=== PATIENT | female | born 1945 | race Caucasian/White ===

== ENCOUNTER 2020-09-18 20:13 | Outpatient (REF) | payer MEDICARE, OTHER, SELFPAY ==
[2020-09-18 13:41] LABS: Abs Immature Grans 0.02 10^3/uL (0.0-0.06); Absolute Basophil Count 0.06 10^3/uL (0.0-0.2); Absolute Eosinophil Count 0.22 10^3/uL (0.0-0.7); Absolute Lymphocyte Count 2.21 10^3/uL (1.2-3.4); Absolute Monocyte Count 0.63 10^3/uL (0.1-0.8); Absolute Neutrophil Count 5.05 10^3/uL (1.2-6.7); Basophils % 0.7; Eosinophils % 2.7; HCT 42.6 % (36.0-46.0); HGB 14.1 g/dL (11.2-15.7); Immature Grans % 0.2; MCH 29.1 pg (27.0-33.0); MCHC 33.1 % (32.0-36.0); MCV 87.8 fL (80-95); MPV 11.9 fL (8.0-11.0); Monocytes % 7.7; Neutrophils % 61.7; Nucleated RBC 0 %; Platelet Count 175 10^3/uL (130-400); RBC 4.85 10^6/uL (3.93-5.22); RDW 13.1 % (11.7-14.6); RDW-SD 42.1 fL; WBC 8.19 10^3/uL (4.4-10.8)
[2020-09-18 13:47] LABS: C-Reactive Protein 0.25 mg/dL (0.0-0.3)
[2020-09-18 20:35] LABS: ESR 47 mm/hr (<or=30)
[2020-09-21 09:38] LABS: Cyclic Citrullinated Peptide <2.5 U/mL (<5.0)
[2020-09-21 11:31] LABS: Lyme Ab w Rflx to Lyme Confirm Negative (Negative)
== END 2020-09-18 20:14 | disposition home or self-care (01) ==
LOC: NCHCN 20:13
PROVIDERS: PCP Internal Medicine; Visit Provider Internal Medicine
DX: M25.511 Pain in right shoulder (principal)
CPT/HCPCS: 85652; 86200; 85025; 86140; 86618

== ENCOUNTER 2021-10-06 16:09 | Outpatient (REF) | payer MEDICARE, OTHER, SELFPAY ==
[2021-10-06 21:21] LABS: ESR 26 mm/hr (0-30)
== END 2021-10-06 16:10 | disposition home or self-care (01) ==
LOC: NCHCN 16:09
PROVIDERS: PCP Internal Medicine; Visit Provider Family Medicine
DX: M35.3 Polymyalgia rheumatica (principal)
CPT/HCPCS: 85652